=== PATIENT | female | born 1975 | race Caucasian/White ===

== ENCOUNTER 2018-02-09 18:26 | Emergency (ER) | END 2018-02-09 23:20 | disposition home or self-care (01) ==

== ENCOUNTER 2019-04-30 22:50 | Emergency (ER) | payer OTHER ==
[~2019-04-30] VITALS: Ht 160 cm; Wt 69.0 kg
[2019-04-30 22:53] VITALS: Ht 160 cm; Wt 69.0 kg
--- NOTE | 2019-05-01 01:31 | ERD ---
ER Documentation Chief Complaint Chief Complaint mid sternal chest pain started yesterday HPI The patient is a 43-year-old female, presenting to the ER because of substernal chest pain that began around 2 PM yesterday, intermittently, no aggravating or relieving factor, had similar symptoms previously, denies chest pain with vomiti ng/radiation/exertion/diaphoresis, dyspnea, abdominal pain, vomiting, dysuria, diarrhea. She has a lot of stress in her life, does not smoke, drinks socially, LMP finished yesterday Past medical history: Depression, anxiety Past surgical history: None Family history: Negative for cardiac history ROS All systems reviewed and are negative except as per history of present illness. Medications Home Meds No Active Prescriptions or Reported Meds Allergies Allergies: Coded Allergies: Penicillins (Verified Allergy, Mild, RASH, 02/09/18) PMhx/Soc History of Surgery: No Anesthesia Reaction: No Hx Neurological Disorder: No Hx Respiratory Disorders: No Hx Cardiac Disorders: No Hx Psychiatric Problems: Yes (Depression, anxiety) Hx Miscellaneous Medical Probl: Yes (Preeclampsia, gestational hypertension) Hx Alcohol Use: No Hx Substance Use: No Hx Tobacco Use: No Physical Exam Vitals Vital Signs Date Temp Pulse Resp B/P (MAP) Pulse Ox O2 O2 Flow FiO2 Time Delivery Rate 05/01/19 66 19 130/68 97 Room Air 04:00 (88) 04/30/19 98.1 70 18 142/85 98 22:53 (104) Physical Exam Const: No acute distress. Head: Atraumatic. Eyes: Normal Conjunctiva. ENT: Normal External Ears, Nose and Mouth. Neck: Full range of motion. No meningismus. Resp: Clear to auscultation bilaterally. Cardio: Regular rate and rhythm. Abd: Soft, non distended, normal bowel sounds, non tender. Skin: No petechiae or rashes. Back: No midline or flank tenderness. Ext: No cyanosis, or edema. Neur: Awake and alert. No focal deficit Psych: Normal Mood and Affect. Result Diagram: 05/01/194 05/01/19223 Results 24 hrs Laboratory Tests Test 05/01/19 02:24 05/01/19 02:39 White Blood Count 9.1 10^3/ul Red Blood Count 4.08 10^6/ul Hemoglobin 12.1 g/dl Hematocrit 36.0 % Mean Corpuscular Volume 88.2 fl Mean Corpuscular Hemoglobin 29.7 pg Mean Corpuscular Hemoglobin Concent 33.6 g/dl Red Cell Distribution Width 13.7 % Platelet Count 274 10^3/UL Mean Platelet Volume 9.8 fl Immature Granulocytes % 0.200 % Neutrophils % 51.8 % Lymphocytes % 35.2 % Monocytes % 7.7 % Eosinophils % 4.6 % Basophils % 0.5 % Nucleated Red Blood Cells % 0.0 /100WBC Immature Granulocytes # 0.020 10^3/ul Neutrophils # 4.7 10^3/ul Lymphocytes # 3.2 10^3/ul Monocytes # 0.7 10^3/ul Eosinophils # 0.4 10^3/ul Basophils # 0.1 10^3/ul Nucleated Red Blood Cells # 0.0 10^3/ul Sodium Level 140 mmol/L Potassium Level 3.4 mmol/L Chloride Level 107 mmol/L Carbon Dioxide Level 26 mmol/L Anion Gap 7 Blood Urea Nitrogen 21 mg/dl Creatinine 1.02 mg/dl Est Glomerular Filtrat Rate mL/min 59 mL/min Glucose Level 136 mg/dl Calcium Level 9.2 mg/dl Troponin I < 0.012 ng/ml POC Beta HCG, Qualitative NEGATIVE Current Medications Medications Dose Sig/[place] Start Time Status Last (Trade) Ordered Route PRN Stop Time Admin Dose Reason Admin Potassium 20 meq ONCE STAT 05/01/19 DC 05/01/19 Chloride PO 03:43 03:58 (Klor-Con 20) 05/01/19 03:44 Procedures/MDM EKG: At 11:07 PM read by emergency physician Rate/Rhythm: Normal Sinus Rhythm 68 beats/min QRS, ST, T-waves: No ST elevation, no T inversion Impression: Normal EKG EKG: At 02:36 AM read by emergency physician Rate/Rhythm: Normal Sinus Rhythm 68 beats/min QRS, ST, T-waves: No ST elevation, no T inversion Impression: Normal EKG [place] [id number] Radiology Main Line: [phone] DIAGNOSTIC IMAGING REPORT Patient: VIKY HADDAD : 1975 Age: 43 Sex: F MR #: [id number] DOS: 05/01/19 0219 Ordering MD: VAN TIRADO MD Location: E/R Room/Bed: PROCEDURE: XR Chest. CLINICAL INDICATION: Chest pain. TECHNIQUE: Single frontal chest x-ray. COMPARISON: 02/09/2018 FINDINGS: The cardiomediastinal silhouette is unremarkable. There is no congestive heart failure.. There is an unchanged 5 mm probable granuloma the left lung base. There is no pleural effusion. There is no pneumothorax. The osseous structures are unremarkable. IMPRESSION: No acute abnormality. Unchanged probable granuloma the left lung base. RPTAT: [facility] .Van Escamilla MD, MD Date Time Electronically viewed and signed by .Van Escamilla MD, MD on 05/01/2019 02:53 .K/ CC: VAN TIRADO MD [phone] MEDICAL MAKING DECISION: The patient is a 43-year-old female, presenting with chest pain for more than 12 hours with negative troponin and 2 normal the EKG, currently w/o any chest pain. I do not suspect acute ACS and she is stable for outpatient follow-up. She was treated with potassium chloride 20 mEq p.o. for acute hypokalemia The differential diagnoses considered include but are not limited to acute coronary syndrome, acute myocardial infarction, pericarditis, pulmonary embolism, aortic dissection, pneumonia, pleural effusion, pneumothorax, GERD, ch est wall pain. Departure Diagnosis: Primary Impression: Chest pain Additional Impression: Hypokalemia Condition: Good Comments The patient's blood pressure was elevated (>120/80) but appears stable without evidence of hypertension emergency or urgency. The patient was counseled about the risks of hypertension and urged to pursue outpatient monitoring and therapy within a week with their primary care physician. I discussed the findings with the patient. I advised the patient to follow-up with the primary physician in about 1-2 days, sooner if needed and return if any concern. Disclaimer: Inadvertent spelling and grammatical errors are likely due to EHR/dictation software use and do not reflect on the overall quality of patient care. Also, please note that the electronic time recorded on this note does not necessarily reflect the actual time of the patient encounter. VAN TIRADO MD May 01, 2019 01:31
[2019-05-01] MEDS ORDERED: POTASSIUM CHLORIDE (SR) 20 MEQ TAB PO STA (03:43)
[2019-05-01 04:00] VITALS: BP 130/68; PULSE 66; RESP 19
== END 2019-05-01 04:02 | disposition home or self-care (01) ==
LOC: E/R 22:50
DX: E87.6 Hypokalemia (principal)
CPT/HCPCS: 71045; 80048; 81025; 84484; 85025; Z7610; 36415; 93005